=== PATIENT | male | born 1945 | race Caucasian/White ===

== ENCOUNTER 2017-05-02 11:57 | Day surgery (SDC) | payer MEDICARE ==
[~2017-05-02 11:57] MED LIST: CEFAZOLIN 1 Gram 1 GM/50 ML BAG IVPB ONE
[2017-05-02 12:26] LABS: HEMATOCRIT 47.1 % (42.0-52.0); HEMOGLOBIN 16.1 gm/dl (14.0-18.0); MEAN CELL VOLUME 94.2 fl (81-97); MEAN CORPUSCULAR HEMOGLOBIN 32.2 pg (27-33); MEAN CORPUSCULAR HGB CONC 34.2 g/dl (32-36); MEAN PLATELET VOLUME 10.5 fl (7.4-10.4); PLATELET COUNT 224 K/uL (130-400); RED CELL DISTRIBUTION WIDTH 12.3 % (11.5-14.5); WHITE BLOOD COUNT W/O DIFF 7.6 K/uL (4.2-12.2)
[2017-05-02 12:41] LABS: ANION GAP 5.5 (7-16); BLOOD UREA NITROGEN 13 mg/dL (9-20); CARBON DIOXIDE 28.5 mmol/L (22-30); EST GLOMERULAR FILTRATION RATE > 60 ml/min; GLUCOSE,RANDOM 93 mg/dL (70-110)
[2017-05-02] MEDS ORDERED: *PACU ONLY* KETAMINE HCL 10 MG/ML (20ML) VIAL IV ONE (14:00)
[2017-05-02] MEDS ORDERED: ALFENTANIL HCL 500 MCG/1ML, 2ML AMP IV ONE (14:00)
[2017-05-02] MEDS ORDERED: PROPOFOL 10 MG/ML VIAL IV ONE (14:00)
[2017-05-02] MEDS ORDERED: LIDOCAINE 2% MDV (20MG/ML) 20ML VIAL IV ONE (14:00)
--- NOTE | 2017-05-10 10:00 | Operative Note ---
DATE OF SURGERY:05/02/2017 PREOPERATIVE DIAGNOSIS: Elevated PSA and family history of prostatic malignancy. POSTOPERATIVE DIAGNOSIS: Elevated PSA and family history of prostatic malignancy. OPERATION: Transrectal ultrasound-guided prostate biopsies. Anesthesia: Sedation. Indication: A 72-year-old male with the above history who presents for prostate biopsy today. We discussed the procedure in great detail including potential risks of pain, bleeding, and infection including sepsis. He understands all the above and wishes to proceed. PROCEDURE: Preop informed consent was obtained. Antibiotics were given. Sedation was administered. The patient was brought to the procedure room and given further sedation and placed carefully in left lateral decubitus position. I should note this patient initially refused the cystoscopy portion of the procedure. Transrectal ultrasound images of the prostate were obtained, and a volume of 44 mL was calculated. Transrectal ultrasound-guided biopsies were then obtained sampling the base, mid, and apex of the gland both medially and laterally for a total of 12 prostate biopsies taken. Following this, the transrectal probe was removed. Direct digital pressure on the prostate was performed. There was minimal if any bleeding at the end of the procedure and the patient was awakened and transferred to recovery in stable condition. PLAN: The patient will finish 3 days of outpatient antibiotics and followup in the [facility] to review the results in 2 weeks. CC: Dr. Anjel FELTON
== END 2017-05-02 15:00 | disposition home or self-care (01) ==
LOC: SUR 11:57 → EDSTATUS 13:45 → SUR 15:00
PROVIDERS: ATTEND Urology
DX: C61 Malignant neoplasm of prostate (principal); Z80.42 Family history of malignant neoplasm of prostate; J44.9 Chronic obstructive pulmonary disease, unspecified; I10 Essential (primary) hypertension; E78.00 Pure hypercholesterolemia, unspecified; F17.200 Nicotine dependence, unspecified, uncomplicated
CPT/HCPCS: 00910; 80048; 88305; 85027; 55700; 76942; J0690

== ENCOUNTER 2018-09-25 11:23 | Day surgery (SDC) | payer MEDICARE ==
[~2018-09-25 11:23] MED LIST changes: -CEFAZOLIN 1 Gram 1 GM/50 ML BAG IVPB ONE; +CEFAZOLIN 2 Gram 2 GM/50 ML BAG IVPB ONE
[2018-09-25] MEDS ORDERED: DEXAMETHASONE 4 MG/ML 1ML VIAL IVP ONE (11:24)
[2018-09-25] MEDS ORDERED: LIDOCAINE 2% MDV (20MG/ML) 20ML VIAL IV ONE (11:24)
[2018-09-25] MEDS ORDERED: ONDANSETRON HCL IV 4 MG/2 ML VIAL IVP ONE (11:24)
[2018-09-25] MEDS ORDERED: FENTANYL PF 100MCG/2ML VIAL IV ONE (11:24)
[2018-09-25] MEDS ORDERED: SEVOFLURANE 250 ML INH ONE (11:24)
[2018-09-25] MEDS ORDERED: MIDAZOLAM HCL 2MG/2ML VIAL IV ONE (11:24)
[2018-09-25] MEDS ORDERED: PROPOFOL 10 MG/ML VIAL IV ONE (11:24)
[2018-09-25 11:32] LABS: BASO % 1.8 % (0-6); GRAN % 57.4 % (47-80); HEMATOCRIT 50.2 % (42.0-52.0); HEMOGLOBIN 17.4 gm/dl (14.0-18.0); LYMPH % 14.3 % (16-45); MEAN CELL VOLUME 94.5 fl (81-97); MEAN CORPUSCULAR HEMOGLOBIN 32.8 pg (27-33); MEAN CORPUSCULAR HGB CONC 34.7 g/dl (32-36); MEAN PLATELET VOLUME 9.4 fl (7.4-10.4); MONO % 10.5 % (0-9); PLATELET COUNT 254 K/uL (130-400); RED BLOOD COUNT 5.31 M/uL (4.40-5.70); RED CELL DISTRIBUTION WIDTH 11.9 % (11.5-14.5)
[2018-09-25 12:28] LABS: BLOOD UREA NITROGEN 10 mg/dL (8-23); EST GLOMERULAR FILTRATION RATE > 60 mL/min; GLUCOSE,RANDOM 104 mg/dL (74-109)
--- NOTE | 2018-09-26 10:10 | Operative Note ---
DATE OF SURGERY: 09/25/2018 PREOPERATIVE DIAGNOSIS: Prostate cancer with proteinuria. POSTOPERATIVE DIAGNOSIS: Prostate cancer with proteinuria. OPERATION: Cystoscopy and bilateral retrograde pyelogram. Anesthesia: General. Surgeon: Jonathan Cota MD Adaptive Physical Educator: None. Indication: A 73-year-old male with a history of radical prostatectomy last year who continues to have significant proteinuria and reports seeing large flecks of material in his urine. He presents for cystoscopic evaluation today. His PSA has remained undetectable since his surgery. PROCEDURE: Preop informed consent was obtained. Antibiotics were given. Sedation was administered. The patient was brought to the operating room, placed supine. General anesthetic was given. A timeout was performed and the genitalia were prepped and draped in the usual sterile fashion. Cystoscopy was performed. The anterior urethra appears unremarkable without stricture. The prostate is surgically absent. The bladder was entered and inspected carefully and systematically. Both ureteral orifices had normal appearance and positioning. Each was effluxing clear urine. The bladder itself was inspected carefully. No urothelial or abnormal-appearing lesion was discovered. There was no evidence of any foreign material in the bladder, and the urine was completely clear. Injection of contrast was performed into both ureters under C-arm fluoroscopic guidance. Recognizing the limitations of mobile fluoroscopy to delineate fine detail, both ureters and upper tracts appeared unremarkable without any evidence of filling defect, stricture, or dilatation and drainage was prompt bilaterally. There was no evidence of obstruction or mass. The bladder was then emptied and the scope was removed. The patient was awakened and transferred to recovery in stable condition. PLAN: The patient will follow up with me in 3-6 months to continue to follow his PSA. I have asked him to continue close followup with his stock manager to determine if there is any further testing that should be performed. His urinary tract evaluation appears completely unremarkable. CC: Dr. Anjel FELTON
== END 2018-09-25 14:40 | disposition home or self-care (01) ==
LOC: SUR 11:23
PROVIDERS: ATTEND Urology
DX: C61 Malignant neoplasm of prostate (principal); I10 Essential (primary) hypertension; J44.9 Chronic obstructive pulmonary disease, unspecified; F17.210 Nicotine dependence, cigarettes, uncomplicated
CPT/HCPCS: 52005; 00910; 85025; 80048; 76000; Q9958; J2405; J3010; J0690